=== PATIENT | male | born 1945 | race Caucasian/White ===

== ENCOUNTER 2021-10-29 21:20 | Emergency (ER) | payer MEDICARE, OTHER ==
[2021-10-29 22:16] LABS: BASOPHIL 0.8 % (0-2); EOSINOPHIL 4.9 % (0-7); HCT 38.9 % (42.0-52.0); HGB 13.4 g/dl (13.2-18.0); LYMPHOCYTE 30.6 % (15-48); MCH 29.5 pg (25.0-31.0); MCHC 34.4 g/dL (32.0-36.0); MCV 85.7 fL (78.0-100.0); MONOCYTE 9.5 % (0-12); MPV 8.4 fL (6.0-9.5); NEUTROPHIL 53.9 % (41-80); NRBC 0; PLT 205 K/uL (150-400); RBC 4.54 M/uL (4.70-6.00); RDW 12.5 % (11.5-14.0); WBC 6.3 K/uL (4.0-10.5)
[2021-10-29 22:35] LABS: ALBUMIN 3.8 g/dL (3.4-5.0); BILIRUBIN - TOTAL 0.3 mg/dL (0.2-1.0); BUN/CREAT RATIO (CALC) 6.5 RATIO; CREATININE 0.92 mg/dL (0.67-1.17); GLOBULIN (CALCULATION) 3.2 g/dL; POTASSIUM 3.9 mmol/L (3.5-5.1)
[2021-10-29 23:59] LABS: BILIRUBIN NEGATIVE (NEGATIVE); BLOOD 1+ Ery/uL (NEGATIVE); CLARITY CLEAR (CLEAR); COLOR YELLOW (YELLOW); GLUCOSE (U) NORMAL (NORMAL); LEUKOCYTES NEGATIVE Leu/uL (NEGATIVE); NITRITE NEGATIVE (NEGATIVE); PROTEIN NEGATIVE (NEGATIVE); UROBILINOGEN 0.2 mg/dL (0.2-1.0)
[2021-10-30 00:25] LABS: BACTERIA TRACE; URINARY RBC RARE
== END 2021-10-30 01:20 | disposition home or self-care (01) ==
LOC: FER 21:20
PROVIDERS: Internal Medicine; Nurse Practitioner Family
DX: R10.11 Right upper quadrant pain (principal)
CPT/HCPCS: 36415; 80053; 81001; 83690; 85025; J1885; J7030; Q9967

== ENCOUNTER → 2021-11-08 | Day surgery (SDC) | payer MEDICARE, OTHER ==
[~2021-11-08] VITALS: Ht 188 cm; Wt 99.8 kg
[~2021-11-08] MED LIST: ACETAMINOPHEN500 M1 PO; AMITRIPTYLINE H10 MG PO; AMOX TR-K CLV1 EAC4 PO; COLACE100 MG PO; HYDROCODON-ACE1 EAC2 PO; LOSARTAN POTASS25 MG PO; MOTRIN600 MG PO; OXY-IR 5MG5 MG PO
[2021-11-08 13:12] LABS: BUN/CREAT RATIO (CALC) 10.5 RATIO; CREATININE 0.95 mg/dL (0.67-1.17); POTASSIUM 4.2 mmol/L (3.5-5.1)
== END | disposition home or self-care (01) ==
LOC: FAS 11:37
PROVIDERS: Anesthesiology
DX: K80.10 Calculus of gallbladder with chronic cholecystitis without obstruction (principal); I10 Essential (primary) hypertension; R94.31 Abnormal electrocardiogram [ECG] [EKG]; M19.90 Unspecified osteoarthritis, unspecified site; Z79.891 Long term (current) use of opiate analgesic; Z79.1 Long term (current) use of non-steroidal anti-inflammatories (NSAID); Z79.899 Other long term (current) drug therapy
CPT/HCPCS: 36415; 80048; 93005; J0690; J1644; J1885; J2250; J2405; J2704; J3010; J7120

== ENCOUNTER 2021-11-13 23:06 | Emergency (ER) | payer MEDICARE, OTHER ==
[2021-11-14 00:16] LABS: BASOPHIL 0.9 % (0-2); EOSINOPHIL 13.1 % (0-7); HCT 37.4 % (42.0-52.0); HGB 13.1 g/dl (13.2-18.0); MCH 29.6 pg (25.0-31.0); MCV 84.4 fL (78.0-100.0); MONOCYTE 8.9 % (0-12); MPV 8.2 fL (6.0-9.5); NRBC 0; PLT 250 K/uL (150-400); RBC 4.43 M/uL (4.70-6.00); WBC 6.7 K/uL (4.0-10.5)
[2021-11-14 00:43] LABS: ALBUMIN 3.4 g/dL (3.4-5.0); BILIRUBIN - TOTAL 0.4 mg/dL (0.2-1.0); BUN/CREAT RATIO (CALC) 10.2 RATIO; CREATININE 0.88 mg/dL (0.67-1.17); GLOBULIN (CALCULATION) 3.6 g/dL; POTASSIUM 3.8 mmol/L (3.5-5.1)
[2021-11-14 00:49] LABS: BILIRUBIN NEGATIVE (NEGATIVE); BLOOD 1+ Ery/uL (NEGATIVE); CLARITY CLEAR (CLEAR); COLOR YELLOW (YELLOW); GLUCOSE (U) NORMAL (NORMAL); LEUKOCYTES NEGATIVE Leu/uL (NEGATIVE); NITRITE NEGATIVE (NEGATIVE); PROTEIN NEGATIVE (NEGATIVE); UROBILINOGEN 0.2 mg/dL (0.2-1.0); pH 5.5 (5.0-9.0)
[2021-11-14 01:02] LABS: BACTERIA TRACE; SQUAMOUS EPITHELIAL CELLS RARE
== END 2021-11-14 04:01 | disposition home or self-care (01) ==
LOC: FER 23:06
PROVIDERS: Emergency Medicine
DX: R10.11 Right upper quadrant pain (principal); R10.31 Right lower quadrant pain; I10 Essential (primary) hypertension; Z79.899 Other long term (current) drug therapy
CPT/HCPCS: 36415; 80053; 81001; 82150; 83690; 85025; J2270; J2405; J7030